=== PATIENT | female | born 1980 | race Caucasian/White ===

== ENCOUNTER 2019-05-28 10:14 | Emergency (ER) | payer BC, SELFPAY ==
[2019-05-28] VITALS (9 sets, daily range): BP systolic 122–143; BP diastolic 81–94; PULSE 72–94; RESP 12–19; TEMP 36.7; O2SAT 98–100
--- NOTE | ~2019-05-28 | XR_ITS ---
EXAMINATION: XR chest 2V DATE: 05/28/2019 11:01 INDICATION: Chest pain. Shortness of breath. TECHNIQUE: Frontal and lateral views of the chest were obtained. COMPARISON: None. FINDINGS: The chest demonstrates clear lungs without pneumonia, pleural effusion, or pneumothorax. Th e heart size is normal. Surgical clips in the right upper quadrant are likely from cholecystectomy. IMPRESSION: 1. No acute cardiopulmonary disease. Reviewed, dictated and finalized at location A. [facility]
--- NOTE | 2019-05-28 10:39 | ECG_ITS ---
Measurements Intervals [place] Rate: 84 P: 54 AR: 125 QRS: 4 QRSD: 97 T: 18 QT: 345 QTc: 410 Interpretive Statements SINUS RHYTHM VOLTAGE CRITERIA FOR LVH BORDERLINE ST-T WAVE ABNORMALITY- ANTEROLAT/INF LEADS BORDERLINE ECG Electronically Signed On 05-28-2019 10:48:24 STATE ATTORNEY by Nasir Taylor D.O.
--- NOTE | 2019-05-28 10:41 | ED.CHESTPAIN ---
HPI - Chest Pain General Chief Complaint: Headache Stated Complaint: high bp/cp/joseph Time Seen by Provider: 05/28/19 10:33 Source: patient Mode of arrival: ambulatory Limitations: no limitations History of Present Illness HPI narrative: Patient is a 38-year-old female who presents with chest discomfort noted as a pressure over the left chest that radiates to the left arm began today also noting headache with concern for elevated blood pressure notes she went Sunday to urgent care for blood pressure was also having chest discomfort at that time was evaluated and sent home patient notes concern for possible elevated blood pressure denies history of hypertension. Patient does not take anything other than naproxen for her headache and on arrival is in the room in no distress presents per private vehicle Related Data Home Medications Medication Instructions Recorded Confirmed 05/28/19 Allergies Allergy/AdvReac Type Severity Reaction Status Date / Time latex Allergy Mild RASH Verified 05/28/19 10:53 codeine AdvReac Unknown Nausea and Verified 05/28/19 10:53 Vomiting Review of Systems Review of Systems: Narrative: CONSTITUTIONAL: Denies fever, chills, or sweats. EYES: Denies redness, or discharge. ENT: Denies rhinorrhea, congestion, sore throat, or otalgia. CARDIOVASCULAR: Denies palpitations, or edema. RESPIRATORY: Denies cough or dyspnea. GASTROINTESTINAL: Denies abdominal pain, vomiting, or diarrhea. GENITOURINARY: Denies dysuria or hematuria. SKIN: Denies rash or itching. MUSCULOSKELETAL: Denies back pain, joint pain, or myalgia. NEUROLOGIC: Denies numbness, dizziness, or weakness. PSYCHIATRIC: Denies anxiety . PMFSH Family History Family History Sibling Diabetes mellitus Hypertension Grandparent Diabetes mellitus Father Hypertension Mother Family history of malignant neoplasm of breast in first degree relative Social History Social History Smoking status: Former smoker Smoking end date: 03/26/10 Alcohol intake: current Gender identity (if verbalized by the patient): Female Exam Narrative: Exam Narrative: GENERAL: Well-appearing, well-nourished, and in no acute distress. HEAD: Normocephalic, atraumatic. EYES: PERRLA and EOMI. ENT: Nares clear, no rhinorrhea or epistaxis. Mucous membranes moist. Oropharynx without tonsillar hypertrophy exudate or other lesions. NECK: Supple. No adenopathy or masses. CHEST: Clear to auscultation. No respiratory distress. No wheezes rales or rhonchi HEART: Regular rate and rhythm. No murmur heard. Normal peripheral pulses. ABDOMEN: Soft, nontender, nondistended EXTREMITIES: Normal range of motion. No edema. SKIN: Warm, dry, no rash. NEURO: No focal deficits. Alert and oriented x3. Cranial nerves II through XII grossly intact PSYCH: Normal mood and affect. Course Course Emergency Course: Patient in the room in no distress aware of case findings treatment plan and diagnosis agreeing to follow-up with primary care and cardiology provided with reasons to return Vital Signs Vital signs: Vital Signs Pulse Rate 94 05/28/19 10:21 Respiratory Rate 19 05/28/19 10:21 Blood Pressure 136/87 05/28/19 10:21 Pulse Oximetry 100 05/28/19 10:21 Temperature 98.0 F 05/28/19 10:41 Pulse Rate 72 05/28/19 13:06 Respiratory Rate 13 05/28/19 13:06 Blood Pressure 132/81 05/28/19 12:16 Pulse Oximetry 99 05/28/19 13:06 MDM - Chest Pain MDM Narrative Medical decision making narrative: Patients EKGs and labs are without significant high risk changes. Cardiac risk factors were review. Patient is felt likely to be low risk for ACS and reasonable for further risk stratification testing as an outpatient. Pain was not sadden or maximal in onset without tearing or ripping. quality. No other signs or symptoms to suggest aortic di
[2019-05-28 10:59] LABS: Basophils Absolute Auto 0.1 K/mm3 (0.0-0.1); Basophils Percent Auto 1.1 % (0.2-1.2); Eosinophils Percent Auto 0.4 % (0-4.4); Hematocrit 40.4 % (37.0-47.0); Hemoglobin 12.7 g/dL (12.0-15.0); Immature Granulocyte Absolute 0.02 K/mm3 (0.00-0.031); Immature Granulocyte Percent A 0.4 % (0-0.5); Lymphocytes Absolute Auto 1.31 K/mm3 (0.9-3.2); Lymphocytes Percent Auto 23.5 % (18.3-44.2); Mean Corpuscular HGB Conc 31.4 g/dl (32-36); Mean Corpuscular Hemoglobin 29.2 pg (26-34); Mean Corpuscular Volume 92.9 fl (80-100); Mean Platelet Volume 12.7 fl (7.4-10.4); Monocytes Absolute Auto 0.3 K/mm3 (0.1-0.6); Monocytes Percent Auto 5.7 % (2.6-8.5); Neutrophils Absolute Auto 3.9 K/mm3 (1.3-6.7); Neutrophils Percent Auto 68.9 % (45.5-73.1); Platelet Count Result 205 k/mm3 (150-375); Red Blood Count 4.35 M/mm3 (4.2-5.4); Red Cell Distribution Width 13.3 % (11.5-14.5); White Blood Count 5.6 K/mm3 (4.5-10.0)
[2019-05-28 11:05] LABS: INR 0.9; Prothrombin Time 12.2 Seconds (11.1-14.7)
[2019-05-28 11:06] LABS: Partial Thromboplastin Time 33.7 SECONDS (22.3-36.8)
[2019-05-28 11:07] LABS: Blood Urea Nitrogen 6 mg/dL (7-17); Calcium 9.2 mg/dL (8.4-10.2); Carbon Dioxide 29 mmol/L (22-30); Chloride 101 mmol/L (98-107); Estimated CRCL calculation 117 ml/min; Estimated Glomerular Filt Rate > 60; Glucose 108 mg/dL (65-105); Potassium 3.6 mmol/L (3.4-5.0); Sodium 136 mmol/L (137-145)
[2019-05-28 11:19] LABS: Troponin I < 0.012 ng/mL (0.000-0.034)
[2019-05-28] MEDS: ASPIRIN 81 MG CHEWABLE TABLET 324 MG PO (11:28)
--- NOTE | 2019-05-28 11:30 | PC.NURSE ---
Pt denies chest pain, states it's a heaviness and it's getting better. My head is getting worse .
[2019-05-28 11:43] LABS: Add Urine Microscopic? NO; Appearance Urine Clear (Clear); Bilirubin Urine Negative (Negative); Blood Urine Negative (Negative); Color Urine Colorless (Yellow); Glucose Urine UA Negative (Negative); Ketones Urine Negative (Negative); Leukocyte Esterase Ur Negative LEU/UL (Negative); Nitrate Urine Negative (Negative); Protein Urine Negative (Negative); Urobilinogen Urine Negative mg/dL (<2.0)
[2019-05-28 11:45] LABS: Specific Grav Ur 1.004 (1.001-1.035)
--- NOTE | 2019-05-28 13:10 | PC.NURSE ---
Pt ambulatory to bathroom. States is feeling tired, but that headache contines to feel better. Denies chest pain.
[2019-05-28 14:14] LABS: Troponin I < 0.012 ng/mL (0.000-0.034)
== END 2019-05-28 14:46 | disposition home or self-care (01) ==
PROVIDERS: Emergency Medicine Emergency Medical Services; Emergency Provider Emergency Medicine
DX: R07.89 Other chest pain (principal); R51 Headache; Z87.891 Personal history of nicotine dependence; R94.31 Abnormal electrocardiogram [ECG] [EKG]
CPT/HCPCS: 36415; 71046; 80048; 81003; 84484; 85025; 85610; 85730; 93005; 96365; 99284; A9270; J0131

== ENCOUNTER 2019-07-17 14:52 | Outpatient (RCR) | payer BC, SELFPAY ==
[2019-07-17 04:09] LABS: Progesterone 23.5 ng/mL (***)
== END 2019-10-13 23:59 | disposition home or self-care (01) ==
LOC: ANHLAB 14:52
PROVIDERS: Visit Provider Obstetrics & Gynecology
DX: O20.0 Threatened abortion (principal); Z3A.00 Weeks of gestation of pregnancy not specified
CPT/HCPCS: 36415; 84144; 84702

== ENCOUNTER 2019-08-05 10:47 | Outpatient (CLI) | payer BC, SELFPAY ==
--- NOTE | ~2019-08-05 | US_ITS ---
EXAMINATION: US OB <=14 wk fetus w TV DATE: 08/05/2019 11:35 INDICATION: viability assessment during first trimester TECHNIQUE: Real-time pelvic transabdominal and transvaginal ultrasound was performed. COMPARISON: None. FINDINGS: The uterus measures 11.1 x 5.3 x 6.1 cm. There is an intrauterine gestational sac. A 2.4 x 1.6 x 0.2 cm subchorionic hematoma is seen adjacent to the gestational sac. A yolk sac is identified . heart motion is identified measuring 176 beats per minute (bpm) by M-mode Doppler. The crown rump length measures 2.1 cm , which correlates with an estimated gestational age of 8 weeks and 5 day(s) (+/-) 5 day(s). The right ovary measures 2.7 x 1.6 x 2.5 cm. The left ovary measures 3.4 x 2.5 x 3.1 cm. There is nor mal vascular flow in the ovaries. There is no free fluid in the pelvis. IMPRESSION: 1. Live intrauterine with an estimated gestational age of 8 weeks and 5 day(s) (+/-) five d ay(s) and an estimated delivery date of 03/11/2020. 2. Small subchorionic hematoma. Reviewed, dictated and finalized at location A. IMPRESSION: 1. Live intrauterine with an estimated gestational age of 8 weeks and 5 day(s) (+/-) five day(s) and an estimated delivery date of 03/11/2020. 2. Small subchorionic hematoma.
== END 2019-08-05 10:48 | disposition home or self-care (01) ==
PROVIDERS: PCP Family Medicine; Visit Provider Obstetrics & Gynecology
DX: Z34.90 Encounter for supervision of normal pregnancy, unspecified, unspecified trimester (principal); O20.0 Threatened abortion; Z3A.08 8 weeks gestation of pregnancy; O36.8911 Maternal care for other specified fetal problems, first trimester, fetus 1
CPT/HCPCS: 76801; 76817

== ENCOUNTER 2019-08-12 10:39 | Outpatient (RCR) | payer BC, SELFPAY ==
[2019-08-11 12:06] LABS: Basophils Absolute Auto 0.1 K/mm3 (0.0-0.1); Basophils Percent Auto 0.7 % (0.2-1.2); Eosinophils Absolute Auto 0.1 K/mm3 (0-0.3); Eosinophils Percent Auto 0.9 % (0-4.4); Hematocrit 36.5 % (37.0-47.0); Immature Granulocyte Absolute 0.03 K/mm3 (0.00-0.031); Immature Granulocyte Percent A 0.4 % (0-0.5); Lymphocytes Absolute Auto 1.21 K/mm3 (0.9-3.2); Mean Corpuscular HGB Conc 32.9 g/dl (32-36); Mean Corpuscular Hemoglobin 30.2 pg (26-34); Mean Corpuscular Volume 91.9 fl (80-100); Mean Platelet Volume 12.5 fl (7.4-10.4); Monocytes Absolute Auto 0.5 K/mm3 (0.1-0.6); Monocytes Percent Auto 5.7 % (2.6-8.5); Neutrophils Absolute Auto 6.2 K/mm3 (1.3-6.7); Neutrophils Percent Auto 77.3 % (45.5-73.1); Platelet Count Result 191 k/mm3 (150-375); Red Blood Count 3.97 M/mm3 (4.2-5.4); Red Cell Distribution Width 13.9 % (11.5-14.5); White Blood Count 8.1 K/mm3 (4.5-10.0)
[2019-08-11 12:53] LABS: Vitamin D 25 Hydroxy 29.7 ng/mL
[2019-08-11 12:55] LABS: Thyroid Stimulating Hormone 0.381 uIU/mL (0.465-4.680)
[2019-08-11 13:01] LABS: Hepatitis B Surface Antigen Negative (Negative); Rubella IgG Antibody 24.1 IU/ML
[2019-08-11 13:13] LABS: HIV 1/2 Ab P24 Ag Result Negative (Negative); Hepatitis C Virus Antibody Negative (Negative)
[2019-08-12 10:59] LABS: Add Urine Microscopic? NO; Appearance Urine Clear (Clear); Bilirubin Urine Negative (Negative); Blood Urine Negative (Negative); Color Urine Yellow (Yellow); Glucose Urine UA Negative (Negative); Ketones Urine Negative (Negative); Leukocyte Esterase Ur Negative LEU/UL (NEGATIVE); Nitrate Urine Negative (Negative); Protein Urine Negative (Negative); Specific Grav Ur 1.014 (1.001-1.035); Urobilinogen Urine Negative mg/dL (<2.0)
[2019-08-12 11:42] LABS: Rapid Plasma Reagin Non-Reactive (NonReactive)
[2019-08-12 13:02] LABS: Creatinine Urine 65.1 mg/dL
[2019-08-12 13:34] LABS: Creatinine 24 Hour Urine 1.1 gm/24 (0.8-1.8); Total Volume 24 Hour Urine 1800 ml
[2019-08-16 05:53] LABS: Hematocrit 37.6 % (35.0-45.0); Hemoglobin 12.2 g/dL (11.7-15.5); MCH 30.4 pg (27.0-33.0); MCV 93.8 FL (80.0-100.0); RDW 15.1 % (11.0-15.0); Red Blood Cell Count 4.01 Mill/uL (3.80-5.10)
== END 2019-11-09 23:59 | disposition home or self-care (01) ==
LOC: ANHLAB 10:39
PROVIDERS: PCP Family Medicine; Visit Provider Obstetrics & Gynecology
DX: N91.2 Amenorrhea, unspecified (principal); O20.0 Threatened abortion; Z3A.00 Weeks of gestation of pregnancy not specified; Z11.4 Encounter for screening for human immunodeficiency virus [HIV]
CPT/HCPCS: 36415; 81003; 81050; 81220; 81243; 82306; 82570; 83021; 84443; 84702; 85025; 86592; 86703; 86762; 86787; 86803; 86900; 86901; 87086; 87340; G0432

== ENCOUNTER 2019-09-08 11:21 | Outpatient (CLI) | payer BC, SELFPAY ==
--- NOTE | ~2019-09-08 | US_ITS ---
EXAMINATION: US OB <=14 wk fetus w TV DATE: 09/08/2019 12:06 INDICATION: Supervision of other high-risk pregnancies, first trimester. TECHNIQUE: Real-time transabdominal and transvaginal pelvic ultrasound was performed. COMPARISON: Ultrasound 08/05/2019 FINDINGS: TRANSABDOMINAL ULTRASOUND: The uterus measures 10.3 x 6.9 x 9.7 cm. TRANSVAGINAL ULTRASOUND: There is an intrauterine gestational sac. The crown rump length measur es 3.7 cm, which correlates with an estimated gestational age of 10 weeks and 4 day(s) (+/-) 1 week(s ) and 0 day(s). heart motion is not identified by M-mode Doppler and color Doppler. The right o vary is not visualized. The left ovary measures 3.2 x 2.4 x 1.9 cm. There is no free fluid in the pel vis. IMPRESSION: 1. demise. Reviewed, dictated and finalized at location A. IMPRESSION: 1. demise.
== END 2019-09-08 11:22 | disposition home or self-care (01) ==
PROVIDERS: PCP Family Medicine; Visit Provider Obstetrics & Gynecology
DX: O02.1 Missed abortion (principal); Z3A.00 Weeks of gestation of pregnancy not specified
CPT/HCPCS: 76801; 76817

== ENCOUNTER 2019-09-22 11:03 | Outpatient (CLI) | payer BC, SELFPAY ==
--- NOTE | ~2019-09-22 | US_ITS ---
EXAMINATION: US pelvic complete w TV EXAM DATE: 09/22/2019 11:40 INDICATION: Vaginal spotting, missed . TECHNIQUE: Pelvic transabdominal and transvaginal sonogram was performed. There are multiple graysca le and Doppler images available for interpretation. Comparison is made to prior examination from 09/07. FINDINGS: Uterus measures 9.4 x 5.5 x 5.5 cmwith small fluid, some debris within the endometrium reg ion measuring about 1.3 x 1.0 cm with some surrounding hypervascularity of the adjacent myometrium. R etained products of conception. Endometrial stripe measures 12 mm, within normal limits. There is no free pelvic fluid. Right adnexa: The right ovary is normal in size and morphology. Left adnexa: The left ovary is normal in size and morphology. IMPRESSION: 1. Small amount of retained products of conception. Reviewed, dictated and finalized at location B.
== END 2019-09-22 11:04 | disposition home or self-care (01) ==
PROVIDERS: PCP Family Medicine; Visit Provider Obstetrics & Gynecology
DX: O02.1 Missed abortion (principal); Z3A.00 Weeks of gestation of pregnancy not specified
CPT/HCPCS: 76830; 76856

== ENCOUNTER 2019-10-14 15:24 | Outpatient (CLI) | payer BC, SELFPAY ==
[2019-10-14 16:39] LABS: Beta HCG Quantitative 32.69 mIU/ML
== END 2019-10-14 15:25 | disposition home or self-care (01) ==
PROVIDERS: PCP Family Medicine; Visit Provider Obstetrics & Gynecology
DX: O03.9 Complete or unspecified spontaneous abortion without complication (principal); Z3A.00 Weeks of gestation of pregnancy not specified
CPT/HCPCS: 36415; 84702

== ENCOUNTER 2019-10-30 14:35 | Outpatient (CLI) | payer BC, SELFPAY ==
[2019-10-30 15:17] LABS: Beta HCG Quantitative 12.32 mIU/ML
== END 2019-10-30 14:36 | disposition home or self-care (01) ==
LOC: ANHLAB 14:38
PROVIDERS: PCP Family Medicine; Visit Provider Obstetrics & Gynecology
DX: O02.1 Missed abortion (principal); Z3A.00 Weeks of gestation of pregnancy not specified
CPT/HCPCS: 36415; 84702

== ENCOUNTER 2019-11-26 14:59 | Outpatient (CLI) | payer BC, SELFPAY ==
[2019-11-26 16:10] LABS: Beta HCG Quantitative < 2.39 mIU/ML
== END 2019-11-26 15:00 | disposition home or self-care (01) ==
PROVIDERS: PCP Family Medicine; Visit Provider Obstetrics & Gynecology
DX: O02.1 Missed abortion (principal); Z3A.00 Weeks of gestation of pregnancy not specified
CPT/HCPCS: 36415; 84702

== ENCOUNTER 2020-06-30 12:20 | Outpatient (CLI) | payer OTHER, SELFPAY ==
--- NOTE | ~2020-06-30 | US_ITS ---
EXAMINATION: US OB <= 14 weeks fetus DATE: 06/30/2020 13:03 INDICATION: Missed . TECHNIQUE: Real-time transabdominal pelvic ultrasound was performed. COMPARISON: None. FINDINGS: The uterus measures 10.4 x 5.7 x 6.9 cm. There is an intrauterine gestational sac. The crown r ump length measures 1.1 cm, which correlates with an estimated gestational age of 7 weeks and 1 day(s ) (+/-) 5 day(s). heart motion is identified measuring 171 beats per minute (bpm) by M-mode Dop pler. There is a small subchorionic hematoma. The ovaries are not visualized. There is no free fluid in the pelvis. IMPRESSION: 1. Single living intrauterine gestation with estimated date of delivery of 02/15/2021. 2. Small subchorionic hematoma. Reviewed, dictated and finalized at location A. IMPRESSION: 1. Single living intrauterine gestation with estimated date of delivery of . 2. Small subchorionic hematoma.
[2020-07-04 09:19] LABS: Progesterone 23.5 ng/mL (***)
== END 2020-06-30 12:21 | disposition home or self-care (01) ==
PROVIDERS: PCP Family Medicine; Visit Provider Obstetrics & Gynecology
DX: O09.891 Supervision of other high risk pregnancies, first trimester (principal); O46.91 Antepartum hemorrhage, unspecified, first trimester; Z3A.01 Less than 8 weeks gestation of pregnancy
CPT/HCPCS: 36415; 76801; 84144; 84702

== ENCOUNTER 2020-07-03 08:56 | Outpatient (CLI) | payer OTHER, SELFPAY | END 2020-07-03 08:57 | disposition home or self-care (01) | PROVIDERS: PCP Family Medicine; Visit Provider Obstetrics & Gynecology | DX: O09.891 Supervision of other high risk pregnancies, first trimester (principal); Z3A.00 Weeks of gestation of pregnancy not specified | CPT/HCPCS: 36415; 84702 ==

== ENCOUNTER 2020-07-14 12:34 | Outpatient (CLI) | payer OTHER, SELFPAY ==
[2020-07-14 13:34] LABS: Add Urine Microscopic? YES; Appearance Urine Cloudy (Clear); Bilirubin Urine Negative (Negative); Blood Urine Negative (Negative); Color Urine Yellow (Yellow); Glucose Urine UA Negative (Negative); Ketones Urine 1+ mg/dL (Negative); Leukocyte Esterase Ur Negative LEU/UL (NEGATIVE); Mucus Urine Heavy /lpf; Nitrate Urine Negative (Negative); Protein Urine 1+ mg/dL (Negative); Specific Grav Ur 1.024 (1.001-1.035); Squamous Epithelial Cell Urine Few /hpf (Few); Urobilinogen Urine Negative mg/dL (<2.0); WBC Urine 0-3 /hpf (0-3)
[2020-07-14 13:39] LABS: Hemoglobin A1C 5.1 % (<5.7)
[2020-07-14 14:08] LABS: Thyroid Stimulating Hormone 0.223 uIU/mL (0.465-4.680)
[2020-07-14 14:17] LABS: HIV 1/2 Ab P24 Ag Result Negative (Negative)
[2020-07-14 14:47] LABS: Vitamin D 25 Hydroxy 24.7 ng/mL
[2020-07-14 15:04] LABS: Hepatitis B Surface Antigen Negative (Negative); Rubella IgG Antibody 14.6 IU/ML
[2020-07-14 15:18] LABS: Hepatitis C Virus Antibody Negative (Negative)
[2020-07-15 13:04] LABS: Rapid Plasma Reagin Non-Reactive (NonReactive)
[2020-07-16 18:07] LABS: Free T4 Free Thyroxine 1.07 ng/mL (0.78-2.19)
== END 2020-07-14 12:35 | disposition home or self-care (01) ==
LOC: ANHNEURO 12:36
PROVIDERS: PCP Family Medicine; Visit Provider Obstetrics & Gynecology
DX: Z34.90 Encounter for supervision of normal pregnancy, unspecified, unspecified trimester (principal); Z3A.00 Weeks of gestation of pregnancy not specified
CPT/HCPCS: 36415; 81001; 82306; 83036; 84436; 84439; 84443; 86592; 86703; 86762; 86787; 86803; 86850; 86900; 86901; 87086; 87340; G0432

== ENCOUNTER 2020-07-19 07:59 | Outpatient (CLI) | payer OTHER, SELFPAY ==
[2020-07-19 08:58] LABS: Estimated Glomerular Filt Rate > 60
[2020-07-19 12:33] LABS: Collection Time Urine 24 HOURS
[2020-07-19 12:38] LABS: Total Volume 24 Hour Urine 2350 ml
[2020-07-19 12:39] LABS: Patient Weight 175 Lbs
[2020-07-19 12:52] LABS: Creatinine Clearance Urine 166.7 ml/min (75-125); Total Protein Urine 24 Hr 258 mg/24hr (28-141); Total Protein Urine Random 11 mg/dL
== END 2020-07-19 08:00 | disposition home or self-care (01) ==
PROVIDERS: PCP Family Medicine; Visit Provider Obstetrics & Gynecology
DX: I10 Essential (primary) hypertension (principal)
CPT/HCPCS: 36415; 81050; 82565; 82575; 84156

== ENCOUNTER 2020-11-06 16:25 | Observation (INO) | payer MEDICAID, SELFPAY ==
[2020-11-06 17:18] VITALS: BMI 35.6
--- NOTE | 2020-11-06 17:19 | OBADM ---
This patient, Marta Solitario, admitted to the OB room OB Post 117 for observation. Patient/family oriented to hospital policies and general routines including ID bracelet, bed and alarms, visiting hours, pain management, procedures, bathroom and other care routines, personal items, smoking policy, room service/diet, and visiting hours. Patient/Family are encouraged to report perceived risks to care and to ask questions if they do not understand what they are told or what they should do.
[2020-11-06 17:31] VITALS: BP 106/56; PULSE 67
--- NOTE | 2020-12-03 10:53 | PM.OBTRLD ---
OB - Triage/Final Diagnosis Visit Information Comments/Additional reasons for admission: I have assessed the risk for this patient, Marta Omer Altaf, and determined that she would benefit from observation care. Final Diagnosis (1) Status post fall: Code(s): Z91.81 - History of falling Status: Acute
== END 2020-11-06 17:50 | disposition home or self-care (01) ==
PROVIDERS: Admitting Provider Obstetrics & Gynecology; PCP Family Medicine; Visit Provider Obstetrics & Gynecology
DX: Z04.3 Encounter for examination and observation following other accident (principal); O26.899 Other specified pregnancy related conditions, unspecified trimester; W19.XXXA Unspecified fall, initial encounter; Z3A.00 Weeks of gestation of pregnancy not specified
CPT/HCPCS: G0378; G0379

== ENCOUNTER 2020-11-16 09:00 | Outpatient (CLI) | payer MEDICAID, SELFPAY ==
[2020-11-16 11:09] LABS: Basophils Percent Auto 0.6 % (0.2-1.2); Eosinophils Percent Auto 0.3 % (0-4.4); Hematocrit 33.8 % (37.0-47.0); Hemoglobin 10.7 g/dL (12.0-15.0); Immature Granulocyte Absolute 0.04 K/mm3 (0.00-0.031); Immature Granulocyte Percent A 0.6 % (0-0.5); Lymphocytes Absolute Auto 0.97 K/mm3 (0.9-3.2); Lymphocytes Percent Auto 13.7 % (18.3-44.2); Mean Corpuscular HGB Conc 31.7 g/dl (32-36); Mean Corpuscular Hemoglobin 30.8 pg (26-34); Mean Corpuscular Volume 97.4 fl (80-100); Mean Platelet Volume 11.9 fl (7.4-10.4); Monocytes Absolute Auto 0.3 K/mm3 (0.1-0.6); Monocytes Percent Auto 4.7 % (2.6-8.5); Neutrophils Absolute Auto 5.7 K/mm3 (1.3-6.7); Neutrophils Percent Auto 80.1 % (45.5-73.1); Platelet Count Result 189 k/mm3 (150-375); Red Blood Count 3.47 M/mm3 (4.2-5.4); Red Cell Distribution Width 14.6 % (11.5-14.5); White Blood Count 7.1 K/mm3 (4.5-10.0)
[2020-11-16 11:23] LABS: Glucose 1 Hour PP 50gm Dose 179 mg/dL
[2020-11-16 11:38] LABS: Free T4 Free Thyroxine 0.67 ng/mL (0.78-2.19)
[2020-11-16 11:51] LABS: Thyroid Stimulating Hormone 0.237 uIU/mL (0.465-4.680)
== END 2020-11-16 09:01 | disposition home or self-care (01) ==
LOC: ANHLAB 09:02
PROVIDERS: PCP Family Medicine; Visit Provider Obstetrics & Gynecology
DX: Z34.90 Encounter for supervision of normal pregnancy, unspecified, unspecified trimester (principal); Z3A.00 Weeks of gestation of pregnancy not specified
CPT/HCPCS: 36415; 82947; 84439; 84443; 85025

== ENCOUNTER 2020-12-07 12:58 | Outpatient (CLI) | payer MEDICAID, SELFPAY ==
[2020-12-07 14:31] LABS: Thyroid Stimulating Hormone 0.397 uIU/mL (0.465-4.680)
== END 2020-12-07 12:59 | disposition home or self-care (01) ==
PROVIDERS: PCP Family Medicine; Visit Provider Obstetrics & Gynecology
DX: Z34.93 Encounter for supervision of normal pregnancy, unspecified, third trimester (principal); Z3A.28 28 weeks gestation of pregnancy
CPT/HCPCS: 36415; 84436; 84443

== ENCOUNTER 2021-01-18 13:14 | Outpatient (CLI) | payer OTHER, SELFPAY ==
[2021-01-18 13:39] LABS: Basophils Absolute Auto 0.1 K/mm3 (0.0-0.1); Basophils Percent Auto 0.5 % (0.2-1.2); Eosinophils Absolute Auto 0.1 K/mm3 (0-0.3); Eosinophils Percent Auto 0.7 % (0-4.4); Hematocrit 33.2 % (37.0-47.0); Hemoglobin 10.8 g/dL (12.0-15.0); Immature Granulocyte Absolute 0.04 K/mm3 (0.00-0.031); Immature Granulocyte Percent A 0.4 % (0-0.5); Lymphocytes Absolute Auto 1.67 K/mm3 (0.9-3.2); Lymphocytes Percent Auto 17.6 % (18.3-44.2); Mean Corpuscular HGB Conc 32.5 g/dl (32-36); Mean Corpuscular Hemoglobin 31.7 pg (26-34); Mean Corpuscular Volume 97.4 fl (80-100); Mean Platelet Volume 11.7 fl (7.4-10.4); Monocytes Absolute Auto 0.6 K/mm3 (0.1-0.6); Monocytes Percent Auto 6.5 % (2.6-8.5); Neutrophils Percent Auto 74.3 % (45.5-73.1); Platelet Count Result 192 k/mm3 (150-375); Red Blood Count 3.41 M/mm3 (4.2-5.4); Red Cell Distribution Width 14.1 % (11.5-14.5); White Blood Count 9.5 K/mm3 (4.5-10.0)
[2021-01-18 14:29] LABS: HIV 1/2 Ab P24 Ag Result Negative (Negative)
[2021-01-19 08:31] LABS: Rapid Plasma Reagin Non-Reactive (NonReactive)
== END 2021-01-18 13:15 | disposition home or self-care (01) ==
LOC: ANHLAB 13:15
PROVIDERS: PCP Family Medicine; Visit Provider Obstetrics & Gynecology
DX: Z34.93 Encounter for supervision of normal pregnancy, unspecified, third trimester (principal); Z3A.34 34 weeks gestation of pregnancy
CPT/HCPCS: 36415; 85025; 86592; 86703; G0432

== ENCOUNTER 2021-01-29 13:07 | Observation (INO) | payer OTHER, SELFPAY ==
[2021-01-29] VITALS (8 sets, daily range): BP systolic 116–129; BP diastolic 73–77; PULSE 74–88; TEMP 37.1; BMI 34.8
--- NOTE | 2021-01-29 13:46 | OBADM ---
This patient, Marta Solitario, admitted to the OB room Labor/Delivery/Recovery 105 for observation. Patient/family oriented to hospital policies and general routines including ID bracelet, bed and alarms, visiting hours, pain management, procedures, bathroom and other care routines, personal items, smoking policy, room service/diet, and visiting hours. Patient/Family are encouraged to report perceived risks to care and to ask questions if they do not understand what they are told or what they should do.
[2021-01-29 14:06] LABS: Add Urine Microscopic? NO; Appearance Urine Clear (Clear); Bilirubin Urine Negative (Negative); Blood Urine Negative (Negative); Color Urine Straw (Yellow); Glucose Urine UA Negative (Negative); Ketones Urine Negative (Negative); Leukocyte Esterase Ur Negative LEU/UL (Negative); Nitrate Urine Negative (Negative); Protein Urine Negative (Negative); Urobilinogen Urine Negative mg/dL (<2.0)
[2021-01-29 14:11] LABS: Specific Grav Ur 1.003 (1.001-1.035)
--- NOTE | 2021-02-04 08:31 | PM.OBTRLD ---
OB - Triage/Final Diagnosis Visit Information Comments/Additional reasons for admission: I have assessed the risk for this patient, Marta Omer Altaf, and determined that she would benefit from observation care. Evaluation Laboratory results: Laboratory Tests 01/29/21 13:53 Urine Color Straw Urine Appearance Clear Urine pH 7.0 Ur Specific [place] 1.003 Urine Protein Negative Urine Glucose (UA) Negative Urine Ketones Negative Ur Blood (Man) Negative Urine Nitrate Negative Urine Bilirubin Negative Urine Urobilinogen Negative Leukocyte Esterase Rfl Negative Final Diagnosis (1) False labor: Code(s): O47.9 - False labor, unspecified Status: Acute
== END 2021-01-29 16:22 | disposition home or self-care (01) ==
PROVIDERS: Admitting Provider Obstetrics & Gynecology; PCP Family Medicine; Visit Provider Obstetrics & Gynecology
DX: O47.1 False labor at or after 37 completed weeks of gestation (principal); Z3A.37 37 weeks gestation of pregnancy
CPT/HCPCS: 81003; G0378; G0379

== ENCOUNTER 2021-02-01 07:06 | Inpatient (IN) | payer OTHER, SELFPAY ==
[2021-02-01] VITALS (57 sets, daily range): BP systolic 105–155; BP diastolic 57–98; PULSE 63–89; RESP 18–20; TEMP 36.1–37.4; BMI 34.1
--- NOTE | 2021-02-01 07:28 | LDADM ---
This patient, Marta Solitario, was admitted to Labor/Delivery/Recovery 103 on 02/01/21 at 07:06. Plans for labor, pain management and were discussed with patient. Patient/family oriented to hospital policies and general routines including ID bracelet, bed and alarms, visiting hours, pain management, procedures, bathroom and other care routines, personal items, smoking policy, room service/diet and guest tray routines, security routines, and visiting hours. Patient/Family are encouraged to report perceived risks to care and to ask questions if they do not understand what they are told or what they should do. See OBIX for further documentation.
[2021-02-01 07:42] LABS: Basophils Absolute Auto 0.1 K/mm3 (0.0-0.1); Basophils Percent Auto 0.6 % (0.2-1.2); Eosinophils Absolute Auto 0.1 K/mm3 (0-0.3); Eosinophils Percent Auto 0.8 % (0-4.4); Hemoglobin 11.6 g/dL (12.0-15.0); Immature Granulocyte Absolute 0.02 K/mm3 (0.00-0.031); Immature Granulocyte Percent A 0.2 % (0-0.5); Lymphocytes Absolute Auto 1.48 K/mm3 (0.9-3.2); Lymphocytes Percent Auto 16.5 % (18.3-44.2); Mean Corpuscular HGB Conc 32.2 g/dl (32-36); Mean Corpuscular Hemoglobin 31.4 pg (26-34); Mean Corpuscular Volume 97.6 fl (80-100); Mean Platelet Volume 11.9 fl (7.4-10.4); Monocytes Absolute Auto 0.6 K/mm3 (0.1-0.6); Monocytes Percent Auto 6.7 % (2.6-8.5); Neutrophils Absolute Auto 6.7 K/mm3 (1.3-6.7); Neutrophils Percent Auto 75.2 % (45.5-73.1); Platelet Count Result 187 k/mm3 (150-375); Red Blood Count 3.69 M/mm3 (4.2-5.4); Red Cell Distribution Width 14.2 % (11.5-14.5)
[2021-02-01] MEDS: LACTATED RINGERS 1,000 ML 125 ML IV CONT (07:44)
[2021-02-01] MEDS: OXYTOCIN 30 UNITS/NS 500 ML 30 UNITS/500 ML BAG IV CONT (07:45)
[2021-02-01] MEDS: AMPICILLIN 2 GM/NS 100 ML 2 GM/100 ML BAG IVPB (07:45)
[2021-02-01 07:58] LABS: Alanine Aminotransferase 32 U/L (4-35); Albumin Level 3.8 g/dL (3.5-5.1); Alkaline Phosphatase 134 U/L (38-126); Anion Gap 7 mmol/L (8-16); Aspartate Amino Transferase 29 U/L (14-36); Bilirubin,Total 0.3 mg/dL (0.2-1.3); Blood Urea Nitrogen 7 mg/dL (7-17); Calcium 9.2 mg/dL (8.4-10.2); Carbon Dioxide 22 mmol/L (22-30); Chloride 105 mmol/L (98-107); Estimated CRCL calculation 138 ml/min; Estimated Glomerular Filt Rate > 60; Glucose 140 mg/dL (65-110); Potassium 3.7 mmol/L (3.4-5.0); Sodium 134 mmol/L (137-145)
[2021-02-01 08:28] LABS: Platelet Estimate Adequate (Adequate)
[2021-02-01 08:34] LABS: Uric Acid 4.5 mg/dL (2.5-7.5)
[2021-02-01 08:39] LABS: HIV 1/2 Ab P24 Ag Result Negative (Negative)
[2021-02-01 09:26] LABS: Rapid Plasma Reagin Non-Reactive (NonReactive)
[2021-02-01 10:36] LABS: Glucose Point of Care 93 mg/dl (65-105)
[2021-02-01 10:36] LABS: Glucose Point of Care 63 mg/dl (65-105)
[2021-02-01] MEDS: AMPICILLIN 1 GM/NS 50 ML 1 GM/50 ML BAG IVPB ×2 (11:47→15:38)
[2021-02-01 12:35] LABS: Glucose Point of Care 65 mg/dl (65-105)
[2021-02-01 13:53] LABS: Glucose Point of Care 76 mg/dl (65-105)
[2021-02-01 15:38] LABS: Glucose Point of Care 65 mg/dl (65-105)
[2021-02-01 16:16] LABS: Glucose Point of Care 84 mg/dl (65-105)
[2021-02-01] MEDS: DEXTROSE 5%/LACTATED RINGERS 1,000 ML 125 ML IV CONT (16:39)
[2021-02-01] MEDS: FAMOTIDINE 20 MG/2 ML VIAL IV PUSH (18:31)
[2021-02-01] MEDS: OXYTOCIN 30 UNITS/NS 500 ML 30 UNITS/500 ML BAG 125 UNITS IV CONT (19:22)
[2021-02-01] MEDS: IBUPROFEN 600 MG TABLET PO (21:02)
--- NOTE | 2021-02-01 21:29 | OBPPTRN ---
Patient transferred to post room #285 via wheelchair. Support person present. Oriented to unit, room, information board, rooming in, admission packet and security measures. Patient verbalizes understanding.
[2021-02-01] MEDS: LABETALOL HCL 50 MG TABLET 150 MG PO (22:00)
[2021-02-02] VITALS: BP 108/62; PULSE 64; RESP 18; TEMP 36.8
[2021-02-02] MEDS: IBUPROFEN 600 MG TABLET PO ×3 (03:14→19:55)
[2021-02-02 03:25] LABS: Glucose Point of Care 79 mg/dl (65-105)
[2021-02-02 03:35] VITALS: BP 110/67; PULSE 68; RESP 18; TEMP 36.9
--- NOTE | 2021-02-02 03:35 | PC.NURSE ---
Fasting blood sugar 79.
[2021-02-02 05:56] LABS: Hematocrit 31.6 % (37.0-47.0); Hemoglobin 10.2 g/dL (12.0-15.0)
--- NOTE | 2021-02-02 06:39 | PM.IMHP ---
H&P: HPI History of Present Illness Date/Time: 02/01/21 Patient LMP 216 with an EDC 02/15. Consistent with 8 week ultrasound. Admitted at 38 weeks for MIL for chronic hypertension. PNC significant also for gestational diabetes, insulin controlled, AMA. She has had normal NIPT testing, normal surveillance testing. No signs or symptoms of pre-eclampsia. Blood pressures have been normotensive during . Labs reviewed. GBS pos. She has been recommended for induction of labor at 38 weeks due to history of chronic hypertension. Chief Complaint: Medical induction of labor Review of Systems Review of Systems: All systems reviewed & are unremarkable except as noted in HPI and below Constitutional: Constitutional: Reports no additional constitutional complaints and Denies headache(s) Eyes: Eyes: Denies spots in vision ENT: Reports system reviewed and no additional complaints, except as documented and Denies headache(s) Cardiovascular: Cardiovascular: Denies chest pain and Denies dyspnea Respiratory: Respiratory: Denies dyspnea Gastrointestinal: Gastrointestinal: Reports no additional gastrointestinal complaints Genitourinary: Genitourinary: Reports amenorrhea Musculoskeletal: Musculoskeletal: Reports no additional musculoskeletal complaints Integumentary/Breasts: Skin/Breast: Denies breast mass and Denies rash Neurologic: Denies headache(s) Psychiatric: Psychiatric: Reports no additional psychiatric complaints PMFSH Past Medical History Medical History Essential hypertension History of miscarriage x1 Supervision of other high risk pregnancies, first trimester Vaginal delivery x 3 Surgical History Surgical History Hx of cholecystectomy Hx of tonsillectomy Family History Family History Sibling Diabetes mellitus Hypertension Grandparent Diabetes mellitus Father Hypertension Mother Family history of malignant neoplasm of breast in first degree relative Social History Social History Smoking status: Never smoker Alcohol intake: former Alcohol use details: Not since Substance use: never Gender identity (if verbalized by the patient): Female Spiritual care concerns: No Meds Home Medications and Allergies Home Medications Medication Instructions Recorded Confirmed Type labetalol 100 mg tablet 150 mg PO Q12H tablet 06/30/20 02/01/21 History vitamins no.119-iron 1 tablet PO DAILY 06/30/20 02/01/21 History fumarate 29 mg-folic acid 1 mg tablet omeprazole 20 mg capsule,delayed 20 mg PO DAILY 07/14/20 02/01/21 History release blood sugar diagnostic #50 ea 11/23/20 02/01/21 Rx blood-glucose meter #1 ea 11/23/20 02/01/21 Rx lancets 30 gauge and blood glucose #50 ea 11/23/20 02/01/21 Rx strips combo pack NPH Insulin 34 units SUBCUT QPM 01/29/21 02/01/21 History Allergies Allergy/AdvReac Type Severity Reaction Status Date / Time latex Allergy Mild RASH Verified 01/31/21 10:45 codeine AdvReac Intermediate Nausea and Verified 02/01/21 07:21 Vomiting Vital Signs Vital Signs - 24 hr 02/01/21 07:30 02/01/21 07:45 02/01/21 08:00 Temperature 97 F L Pulse Rate 88 86 Respiratory Rate Blood Pressure 121/67 119/76 02/01/21 08:15 02/01/21 08:30 02/01/21 08:45 Temperature Pulse Rate 79 75 79 Respiratory Rate Blood Pressure 117/76 125/82 128/73 02/01/21 09:00 02/01/21 09:15 02/01/21 09:30 Temperature 98.6 F Pulse Rate 82 77 Respiratory Rate Blood Pressure 120/79 114/73 02/01/21 09:31 02/01/21 09:45 02/01/21 10:00 Temperature Pulse Rate 82 79 76 Respiratory Rate Blood Pressure 108/64 114/65 117/64 02/01/21 10:15 02/01/21 10:30 02/01/21 10:45 Temperature
--- NOTE | 2021-02-02 06:50 | PM.OBPRVD ---
OB - Delivery Note Procedure Delivery date: 02/01/21 Procedure: Spontaneous vaginal delivery events: Gestational Diabetes (Chronic hypertension) Induction method: per pitocin protocol Delivery augmentation: rupture of membranes (clear approximately 1300) Delivery monitor: external FHT Route of delivery: Laceration Description: None Specimen: Yes (placenta and cord) Quantitative Blood Loss (ml): 250 Anesthesia type: None Disposition: floor Complications: None Narrative: Patient admitted on 02/01 for medical induction of labor with Pitocin. She had 2 doses of Ampicillin for GBS carrier. At approximately 1300 she had assisted rupture of membranes with clear fluid. Her cervix was 3 cm at that time. She progressed to actively labor. She progressed rapidly from 6 to complete. She delivered a male infant over intact perineum. Nose and mouth suctioned. Delayed cord clamping for 45 seconds until cord apulsatile. was placed on maternal abdomen vigorously crying. Placenta delivered spontaneously intact. EBL 250cc. No lacerations. Patient tolerated procedure well. Baby Date of : 02/01/21 Weeks of gestation at delivery: 38 Infant gender: Male Weight (pounds): 6 Weight (ounces): 9 presentation: vertex position: Right Occiput Anterior Placenta delivery description: Spontaneous
--- NOTE | 2021-02-02 07:00 | PC.NURSE ---
PT introductions made and plan of care discussed per post , pain management, breast feeding, daily care activities. PT received such instructions per one to one discussion , mom baby care guide and demonstrations through out this shift. PT sole recipient of such instructions and no barriers to learning identified at this time. PT verbalized understanding of such care.
[2021-02-02 08:20] VITALS: BP 131/75; PULSE 64; RESP 16; TEMP 36.6; O2SAT 99
[2021-02-02] MEDS: ACETAMINOPHEN 325 MG TABLET 650 MG PO ×2 (10:16→19:55)
[2021-02-02] MEDS: MULTIVIT/MIN/PREN/FOL AC/IRON TABLET 1 TAB PO (10:17)
[2021-02-02] MEDS: DOCUSATE SODIUM 100 MG CAPSULE PO (10:17)
[2021-02-02 10:18] VITALS: PULSE 80
[2021-02-02] MEDS: LABETALOL HCL 50 MG TABLET 150 MG PO ×2 (10:18→21:00)
--- NOTE | 2021-02-02 10:30 | PC.NURSE ---
Consult with pt., mother reports is eagerly feeding with without issue. This is mother?s 4th child to breastfeed. Last child is 5 years old. Requested mother call out next feeding for observation per policy. Reviewed feeding cues, frequencies, duration of feedings, feeding elimination flow sheet, and signs of adequate intake. Demonstrated stimulation techniques to wake infant for feeding. Reviewed signs of a correct latch, effective nursing and suck swallow ratio. Nipple care reviewed of lanolin after feedings and warm compresses as needed. Instructed feeding should be initiated three hours from start of last feeding or if feeding cues are noted before. Mother voiced understanding of information shared.
--- NOTE | 2021-02-02 10:45 | PM.OBPNVD ---
OB - PN: Subj Subjective Date/time seen: 02/02/21 10:45 Patient denies pain. She is breast-feeding and baby is latching on well. Her lochia has decreased. She has ambulated. No problems. She is tolerating regular food. No headaches. Her fasting blood sugar was 76. Patient comments: pain well controlled, tolerating diet and other (Decreasing lochia.) baby status: doing well and nursing well feeding status: exclusively breast feeding OB - PN: Obj Data Labs CBC & Chem 7: 02/02/21 03:04 02/01/21 07:21 Labs: Laboratory Results - last 24 hr 02/01/21 02/01/21 02/01/21 12:33 13:50 15:35 Hgb Hct POC Capillary Glucose 65 76 65 02/01/21 02/02/21 02/02/21 16:14 03:04 03:22 Hgb 10.2 L Hct 31.6 L POC Capillary Glucose 84 79 OB - PN A/P Plan day: 1 Plan: routine care Comments: Patient doing well. Continue routine care. Time Spent With Patient Time: Total time spent is greater than 50% in coordination of care (as documented) at patient's floor/unit and/or counseling patient: Review of Systems Review of Systems: All systems reviewed & are unremarkable except as noted in HPI and below Constitutional: Constitutional: Reports no additional constitutional complaints Cardiovascular: Cardiovascular: Denies dyspnea Respiratory: Respiratory: Denies dyspnea Gastrointestinal: Gastrointestinal: Reports no additional gastrointestinal complaints and Denies abdominal pain Genitourinary: Genitourinary: Reports no additional female genitourinary complaints Exam Const: General: no acute distress, alert and awake Resp: Effort & Inspection: normal respiratory effort GI: Other: Fundus nontender, below umbilicus Psych: Appearance: grossly normal Affect: normal affect Other: Abd: fundus firm below umbilicus, nontender Ext: nontender
[2021-02-02] MEDS: LANOLIN (LANSINOH) 7.5 GM CREAM 1 APPLIC TOPICAL (12:51)
[2021-02-02 20:00] VITALS: BP 120/66; PULSE 71; RESP 16; TEMP 36.6
--- NOTE | 2021-02-03 08:00 | PC.NURSE ---
PT introductions made and plan of care discussed per post , pain management, breast feeding, daily care activities and pending discharge to home. PT received such instructions per one to one discussion , mom baby care guide and demonstrations through out this shift. PT sole recipient of such instructions and no barriers to learning identified at this time. PT verbalized understanding of such care.
[2021-02-03 08:25] VITALS: BP 127/74; PULSE 80; RESP 16; TEMP 36.6; O2SAT 98
[2021-02-03 10:00] VITALS: PULSE 80; RESP 16; O2SAT 98
--- NOTE | 2021-02-03 10:04 | PM.OBDSVD ---
DS: Admitting Diagnosis Discharge Date 02/03/21 Admitting Diagnosis 1. Medical induction of labor 2. Chronic hypertension 3. Insulin requiring gestational diabetes DS: Discharge Diagnosis Discharge Diagnosis (1) Delivery normal: Code(s): O80 - Encounter for full-term uncomplicated delivery Status: Acute OB - DS: Summary Hospital Course Hospital Course: Patient admitted for medical induction of labor. She was started on Pitocin. She received IV antibiotics for GBS prophylaxis. She had assisted rupture of membranes. She progressed to complete and had an uncomplicated vaginal delivery. She did well . Her blood pressures were normal throughout hospital course. she did well. She was discharged to home on day 2 with discharge precautions. OB Procedures : NST and Ultrasound OB Procedures Intrapartum: Spontaneous Vag Delivery OB Procedures: : None Peripartum Data Delivery Method: Natural Vaginal Laceration Description: None complications: none Status at Discharge Functional status at discharge: independent ambulation Overall status at discharge: patient is back to baseline Time Spent with Patient Time attestation: Total time spent providing and/or coordinating discharge services: Exam Const: General: cooperative Orientation/consciousness: oriented to person, oriented to place and oriented to time HENMT: General nose exam: Normal external nose present Eyes: General: appearance normal, both eyes and all related structures Resp: Effort & Inspection: normal respiratory effort GI: Inspection: normal to inspection Skin: General skin exam: normal color Neuro: General: oriented to person, oriented to place and oriented to time Extrem: General: normal to inspection and no calf tenderness Psych: Appearance: grossly normal Mental Status: mental status grossly normal DS: Data Data Completed and Pending Pending studies at discharge: Pending at discharge 02/01/21 19:37 Surgical [PTH] Routine Discharge Plan Discharge Attending physician on discharge: Jorge Luis Martin Discharging Clinician: Jorge Luis Martin Anticipated Discharge Date/Time: 02/03/21 09:58 Patient Disposition: Home, Self-Care Activity: may shower, no straining and pelvic rest Diet: low sodium Discharge Instructions: Contiue previously prescribed Labetolol. Continue daily PNV. Pelvic rest for 4-6 weeks. May take over the counter Ibuprofen or Tylenol for pain. Call if saturating more than a pad an hour, leg redness, pain and swelling, temperature>100.4. No strenuous activity. May discontinue glucose monitoring. Education: Mom and Baby Guide Given to: Mother Follow-Up: Call your delivering provider's office for an appointment to be seen in: 6 Weeks Mom and baby should come to the [facility] for the follow-up appointment. Appointment Date/Time: February 04, 2021 at 11:00 am What to expect at your follow-up visit: Blood Pressure Check Call [phone] if you are unable to keep your appointment time. BREAST CARE: * Wear a snug supportive bra. * For engorgement discomfort: Breast Feeding: * Apply warm moist washcloths * Express milk as needed to relieve engorgement * Wear loose clothing Bottle Feeding: * May apply ice packs * For sore nipples: * Identify correct latch-on * Apply warm moist washcloths before and after nursing * Air dry nipples after nursing * May apply Lansinoh cream to nipples PERINEAL CARE: * Until bleeding stops, use your willard bottle after urinating * Change your pad frequently throughout the day * You may take sitz baths several times a day (fill your bathtub with warm water and soak for 20 minutes.) Do NOT bathe in the water * No tub baths until seen by your physician - You may shower ACTIVITY: * R
--- NOTE | 2021-02-03 10:20 | PC.NURSE ---
Consult with pt., mother has to breast upon entering. Observed mother is able to independently latch with appropriate positioning/alignment. eagerly latches on first attempt with long rhythmical draws and frequent swallowing noted. She denies any nipple discomfort, is feeding as required and waking to feed if needed. has had at least 8 effective feedings in the past 24 hours, and is currently meeting outcomes for weight, output, jaundice and feeding frequencies. Mother states she feels confident to continue effective at home. Reviewed transition to breast milk, signs of adequate intake, and engorgement/relief. Instructed to call ICP if intake/output less than required. Reviewed regular medications mother is taking. Information provided per Fabiana. Reviewed community resources on the [facility] website and in the Mom/Baby guide. Information on outpatient services provided. Mother has no further questions at this time. Instructed feeding should be initiated three hours from start of last feeding or if feeding cues are noted before until seen by ICP. Mother voiced understanding of information shared.
[2021-02-03 11:00] VITALS: PULSE 72
[2021-02-03] MEDS: LABETALOL HCL 50 MG TABLET 150 MG PO (11:00)
--- NOTE | 2021-02-03 11:00 | PC.NURSE ---
PT received discharge instructions per protocol and verbalized understanding.
[2021-02-03] MEDS: IBUPROFEN 600 MG TABLET PO (11:01)
[2021-02-03] MEDS: DOCUSATE SODIUM 100 MG CAPSULE PO (11:01)
[2021-02-03] MEDS: MULTIVIT/MIN/PREN/FOL AC/IRON TABLET 1 TAB PO (11:01)
[2021-02-03] MEDS: ACETAMINOPHEN 325 MG TABLET 650 MG PO (11:02)
--- NOTE | 2021-02-03 11:40 | PC.NURSE ---
PT discharged to home ambulatory accompanied by both spouse and infant and taken to waiting car. Follow up appts confirmed
[2021-02-04 10:38] VITALS: BP 115/70; PULSE 70; RESP 20; TEMP 36.9; O2SAT 98
== END 2021-02-03 11:40 | disposition home or self-care (01) | DRG 560 ==
LOC: ANHLDR 07:11 → ANHOB2 22:03
PROVIDERS: Admitting Provider Obstetrics & Gynecology; PCP Family Medicine; Visit Provider Obstetrics & Gynecology
DX: O10.92 Unspecified pre-existing hypertension complicating childbirth (principal); O24.424 Gestational diabetes mellitus in childbirth, insulin controlled; O99.824 Streptococcus B carrier state complicating childbirth; Z3A.38 38 weeks gestation of pregnancy; Z37.0 Single live birth
CPT/HCPCS: 36415; 80053; 82948; 84550; 85014; 85018; 85025; 86592; 86703; 86850; 86900; 86901; 88307; A9270; G0432; J0131; J0290; J2590; J7120; J7121

== ENCOUNTER 2021-04-11 10:31 | Outpatient (CLI) | payer OTHER, SELFPAY ==
--- NOTE | 2021-04-11 10:36 | ECG_ITS ---
Measurements Intervals [place] Rate: 66 P: 37 [place]: 125 QRS: 6 QRSD: 98 T: 31 QT: 378 QTc: 397 Interpretive Statements SINUS RHYTHM VOLTAGE CRITERIA FOR LVH CONSIDER INFERIOR INFARCT, AGE INDETERMINATE BORDERLINE T WAVE ABNORMALITY- ANTERIOR LEADS ABNORMAL ECG Electronically Signed On 04-11-2021 10:56:48 CONCRETE PIPE MAKING MACHINE OPERATOR by Nasir Taylor D.O.
== END 2021-04-11 10:32 | disposition home or self-care (01) ==
PROVIDERS: PCP Family Medicine; Visit Provider Obstetrics & Gynecology
DX: Z01.818 Encounter for other preprocedural examination (principal); I10 Essential (primary) hypertension; R94.31 Abnormal electrocardiogram [ECG] [EKG]
CPT/HCPCS: 93005

== ENCOUNTER 2021-04-13 00:47 | Day surgery (SDC) | payer OTHER, SELFPAY ==
[2021-04-07 15:05] VITALS: BMI 29.0
--- NOTE | 2021-04-07 15:15 | PC.NURSE ---
Report to the Outpatient Waiting Room, entrance under the green pavilion located off [facility], at time 6:00 on date 04/13/21. OR Time: 7:30. - You will be asked a series of questions to screen for COVID 19 for your protection. - A mask is required within the hospital. - No visitors are allowed at this time. Preoperative COVID Testing Requirements: TO BRING COPY OF COVID CARD No COVID Test needed if: (proof is required; if not received patient will have Rapid Test prior to entry) - Patient has received COVID Vaccine at least 14 days prior to procedure date or - Patient has positive COVID test result within last 90 days of surgery date. COVID Test needed if above criteria is not met Patients may have clear liquids (water, carbonated beverages, clear teas, apple juice) until 3 hours prior to surgery (4:30) with a maximum of 20 ounces. - No food from midnight until time of surgery Take the following medications with a SIP of water the morning of surgery: LABETALOL Medications to discontinue per physician: VITAMINS Date to take last dose: 04/09/21 Please no make-up, nail pashto, hairspray, perfume, deodorant, or body powder the day of surgery. No jewelry (including any body piercings) or valuables the day of surgery, leave them at home. Please take a shower or bath the night before, or the morning of, surgery with an antibacterial soap. Wear comfortable, loose fitting clothing. - Jewelry must be removed prior to entering the operating room. Rings and piercings that are not removed may be cut off. - The hospital will not accept responsibility for valuables. - Please leave all valuables, including medications, at home the day of surgery. If you are going home after surgery, a licensed local delivery truck driver must drive you home. - NO public transportation without another adult. - We recommend that an adult stay with you for 24 hours following discharge. - We also recommend that you do not drive, make important decision, drink alcoholic beverages, or take any drugs that were not prescribed by your health care provider for at least 24 hours after your discharge time. Follow any additional instructions given to you from your surgeon. Telephone instructions given to ZIZY STANLEY and asked if any additional questions and then verbalized understanding. Patient advised to call surgeon office or pre surgery nurse liaison [phone] if any additional questions.
--- NOTE | 2021-04-12 13:55 | PM.IMHP ---
H&P: HPI History of Present Illness Date/Time: 04/12/21 13:55 Patient is here for scheduled laparoscopic sterilization by bilateral salpingectomy. She has satisfied parity and desires permanent sterilization. She declines all other nonpermanent forms of contraception to include vasectomy. She denies any pelvic pain. She has been informed of risks benefits sterilization and risks benefits of the other nonpermanent forms of control and continues to desire the salpingectomy sterilization procedure. Chief Complaint: Desires sterilization Review of Systems Review of Systems: All systems reviewed & are unremarkable except as noted in HPI and below Cardiovascular: Cardiovascular: Reports no additional cardiovascular complaints, Denies chest pain and Denies dyspnea Respiratory: Respiratory: Reports no additional respiratory complaints and Denies dyspnea Gastrointestinal: Gastrointestinal: Reports abdominal pain, Denies change in bowel habits, Denies diarrhea, Denies nausea and Denies vomiting Genitourinary: Genitourinary: Reports pelvic pain Musculoskeletal: Musculoskeletal: Reports back pain Integumentary/Breasts: Skin/Breast: Reports system reviewed and no additional complaints, except as docu Neurologic: Reports system reviewed and no additional complaints, except as documented PMFSH Past Medical History Medical History Essential hypertension History of miscarriage x1 Supervision of other high risk pregnancies, first trimester Vaginal delivery x 3 Surgical History Surgical History Hx of cholecystectomy Hx of tonsillectomy Family History Family History Sibling Diabetes mellitus Hypertension Grandparent Diabetes mellitus Father Hypertension Mother Family history of malignant neoplasm of breast in first degree relative Social History Social History Smoking packs per day: 1 Smoking cigarettes per day: 20.0 Years smoked: 8 Smoking pack-years: 8.00 Smoking status: Former smoker Tobacco type: cigarettes Smoking end date: 03/26/10 Alcohol intake: never Alcohol use details: Not since Substance use: never Substance use type: does not use Gender identity (if verbalized by the patient): Female Spiritual care concerns: No Meds Home Medications and Allergies Home Medications Medication Instructions Recorded Confirmed Type labetalol 100 mg tablet 150 mg PO Q12H tablet 06/30/20 04/07/21 History vitamins no.119-iron 1 tablet PO DAILY 06/30/20 04/07/21 History fumarate 29 mg-folic acid 1 mg tablet Allergies Allergy/AdvReac Type Severity Reaction Status Date / Time latex Allergy Mild RASH Verified 04/07/21 15:04 codeine AdvReac Intermediate Nausea and Verified 04/07/21 15:04 Vomiting Exam Const: Orientation/consciousness: oriented to person and oriented to place HENMT: Head: normal to inspection Eyes: General: appearance normal, both eyes and all related structures Resp: Effort & Inspection: normal respiratory effort Auscultation: clear to auscultation bilaterally Cardio: Rate: regular rate Rhythm: regular rhythm GI: Inspection: normal to inspection GI Palp: No Rebound tenderness present : External Female Exam: normal external appearance Speculum Exam - Vagina: normal appearance of the vagina Speculum Exam - Cervix: normal appearance of the cervix Bimanual exam- vagina & uterus: normal bimanual exam Bimanual Exam- Adnexa, other: no masses Neuro: General: oriented to person and oriented to place Cognition (Neuro): normal cognition Extrem: General: normal to inspection Psych: Appearance: grossly normal and well kempt Assessment and Plan Assessment and plan (1) Admission for sterilization
[2021-04-13] VITALS (9 sets, daily range): BP systolic 110–133; BP diastolic 59–79; PULSE 51–75; RESP 14–17; TEMP 36.1–36.4; O2SAT 98–100
[2021-04-13] MEDS: ACETAMINOPHEN 500 MG TABLET 1000 MG PO (06:58)
[2021-04-13] MEDS: LACTATED RINGERS 1,000 ML 30 ML IV CONT (07:00)
--- NOTE | 2021-04-13 07:03 | P.PNAN_ITS ---
Anes - Initial Pre Proc Eval Procedure: Operation Date: 04/13/21 07:30 Proposed Procedures p Laparoscopic Bilateral Salpingectomy - Jorge Luis Martin MD Date/Time: 04/13/21 07:03 Surgeon: Jorge uLis Martin MD Pre Op Diagnosis: Desires Sterilization Patient Data Age: 40 Gender: F Height: 1.68 m Weight: 81.65 kg Allergies Allergy/AdvReac Type Severity Reaction Status Date / Time latex Allergy Mild RASH Verified 04/13/21 06:20 codeine AdvReac Intermediate Nausea and Verified 04/13/21 06:20 Vomiting Home Medications Medication Instructions Recorded Confirmed Type labetalol 100 mg tablet 150 mg PO Q12H tablet 06/30/20 04/13/21 History vitamins no.119-iron 1 tablet PO DAILY 06/30/20 04/13/21 History fumarate 29 mg-folic acid 1 mg tablet Patient hx anesthesia problems: other (motion sickness) Family hx anesthesia problems: none Results Review: All pre-operative results and documents have been reviewed as part of the pre-operative evaluation. [facility] Past Medical History Medical History Essential hypertension History of miscarriage x1 Supervision of other high risk pregnancies, first trimester Vaginal delivery x 3 Surgical History Surgical History Hx of cholecystectomy Hx of tonsillectomy Family History Family History Sibling Diabetes mellitus Hypertension Grandparent Diabetes mellitus Father Hypertension Mother Family history of malignant neoplasm of breast in first degree relative Social History Social History Smoking packs per day: 1 Smoking cigarettes per day: 20.0 Years smoked: 8 Smoking pack-years: 8.00 Smoking status: Former smoker Tobacco type: cigarettes Smoking end date: 03/26/10 Alcohol intake: never Alcohol use details: Not since Substance use: never Substance use type: does not use Living arrangements: with family Gender identity (if verbalized by the patient): Female Spiritual care concerns: No Anes - Eval Final PreProcedure Day of Procedure 04/13/21 07:03 Patient weight: overweight Heart: regular rate and rhythm Lungs: clear to auscultation Airway: Mallampati scale class II Neurological: alert and oriented Last oral intake: >/= 8 hours ASA classification: II Emergent: no Anesthetic plan: proceed Anesthesia type and monitoring: general ETT and standard monitoring Results Review: All pre-operative results and documents have been reviewed as part of the pre-operative evaluation. Informed Consent: The patient's anesthetic plan and its attendant risks and benefits were discussed with the patient/family/POA. Questions were solicited and answers provided to the satisfaction of the patient/family/POA.
[2021-04-13] MEDS: KETOROLAC 15 MG/ML VIAL (*BKC) IV PUSH (07:05)
--- NOTE | 2021-04-13 07:14 | WPDHPUPDATE1 ---
History and Physical Update Update Date/Time: 04/13/21 07:14 History and Physical has been reviewed, including an updated exam of the patient. There are NO changes in the patient's condition. Risks, benefits, and alternatives have been discussed and questions answered. Patient agrees to proceed with procedure.
[2021-04-13] MEDS: SCOPOLAMINE 1.5 MG PATCH TRANSDERM (07:21)
[2021-04-13] MEDS: BUPIVACAINE HCL 0.5% PF 30 ML VIAL INFILTRATE (08:03)
--- NOTE | 2021-04-13 08:16 | P.OP_ITS ---
Procedure Note - Detailed Date of Procedure 04/13/21 Pre-op Diagnosis Desires Sterilization Post-op Diagnosis same Procedure Performed Laparoscopic bilateral salpingectomy Surgeon Jorge Luis Martin MD Regeneration Operator OR Anesthesia general Indications Undesired fertility. Desires permanent sterilization. Findings Normal appearing uterus, right and left fallopian tubes and ovaries, normal cul de sac. Description of Procedure After informed consent was obtained patient was taken to the operating room and general endotracheal anesthesia was administered. She was placed in low lithotomy need prep prepped sterile fashion. Attention was turned to the vagina speculum inserted single-tooth tenaculum placed on anterior lip of the cervix. [place] uterine manipulator placed into the cervical canal. The speculum was removed. Attention was then turned to the abdomen. With sterile gloves. 0.25% Marcaine injected subcutaneous at umbilicus. A vertical incision was made at the umbilicus and a Veress needle was inserted into the abdomen confirmation into the abdomen obtained with free flow of fluid and normal peritoneal pressures. A pneumoperitoneum of 15 mm per mercury was obtained. A 5 mm port was inserted under laparoscopic visualization. Patient was placed in Trendelenburg position. Attention was turned to the left side of the abdomen and a 5 mm port was inserted under laparoscopic visualization after Marcaine injected subcutaneously. The pelvic organs were visualized. Attention was turned to the right side of the abdomen and another 5 mm port was inserted under laparoscopic visualization after Marcaine injected subcutaneously. Using the LigaSure the right fallopian tube was excised to near the entrance to the uterus. This was removed through the port. Attention was then turned to the left fallopian tube which was grabbed at the distal end and cauterized from the mesial salpinx to within a cm of the entrance to the entrance to the uterus. The fallopian tube was removed through the port. Hemostasis was noted at both sites. Patient was taken out of Trendelenburg position, the ports were removed, the pneumoperitoneum was released and the skin incisions were closed in a subcuticular fashion with 4 O Vicryl and Dermabond. Estimated Blood Loss 5 Drains No Packing No Pathology yes (right and left fallopian tube) Complications No immediate complications Condition stable Disposition PACU
--- NOTE | 2021-04-13 10:16 | SUR.PHASEII ---
1015- spoke with spouse. d/c instructions reviewed with pt.
--- NOTE | 2021-04-13 10:20 | SUR.PHASEII ---
1020- checked with pts surgeon regarding additional prescription for pain.
== END 2021-04-13 10:44 | disposition home or self-care (01) ==
PROVIDERS: PCP Family Medicine; Visit Provider Obstetrics & Gynecology
PROC: (CPT 49320; principal; 2021-04-13 07:30)
DX: Z30.2 Encounter for sterilization (principal); I10 Essential (primary) hypertension; Z87.891 Personal history of nicotine dependence
CPT/HCPCS: 58661; 88302; A9270; J1100; J1170; J1885; J2250; J2704; J3010; J7030; J7120

== ENCOUNTER 2021-07-21 10:10 | Outpatient (CLI) | payer OTHER, SELFPAY ==
--- NOTE | 2021-07-21 | ECG_ITS ---
Measurements Intervals [place] Rate: 58 P: 60 [place]: 120 QRS: 16 QRSD: 92 T: 51 QT: 438 QTc: 433 Interpretive Statements SINUS BRADYCARDIA COMPARED TO ECG 04/11/2021 10:49:46 SINUS BRADYCARDIA NOW PRESENT Electronically Signed On 07-21-2021 20:54:02 CDT by Lillie Park M.D.
== END 2021-07-21 10:11 | disposition home or self-care (01) ==
LOC: ANHLAB 10:12 → ANHCARD 10:15
PROVIDERS: PCP Nurse Practitioner Family; Visit Provider Nurse Practitioner Family
DX: R94.31 Abnormal electrocardiogram [ECG] [EKG] (principal)
CPT/HCPCS: 93005

== ENCOUNTER 2022-05-24 15:18 | Outpatient (CLI) | payer OTHER, SELFPAY ==
--- NOTE | ~2022-05-24 | MM_ITS ---
EXAMINATION: MM screening vickey BI w jaime HISTORY: Screening mammogram TECHNIQUE: Craniocaudal and mediolateral oblique 3-D tomosynthesis images were obtained and synthetic 2-D images were generated. CAD analysis was submitted and interpreted. COMPARISON: 01/28/2019 bilateral diagnostic mammogram 01/14/2019 bilateral screening mammogram BREAST PARENCHYMAL COMPOSITION: The breasts are heterogeneously dense, which may obscure small masses . FINDINGS: There is generalized increased prominence of the fibroglandular stroma since 01/14/2019. There is an approximately 1.9 cm circumscribed mass density in the lower right breast approximately 6 :00 position 3 3.5 cm deep to the nipple. The heterogeneously dense stroma may obscure additional masses. Bilateral complete breast ultrasound examination is recommended. IMPRESSION: 1. Approximately 1.9 cm circumscribed mass at 6:00 position of right breast 2. Heterogeneously dense stroma bilaterally may obscure additional masses. BI-RADS Category 0: Incomplete; need additional imaging evaluation Recommendation: Bilateral complete breast ultrasound examination Reviewed, dictated and finalized at location A. ITAL RECRUITER
== END 2022-05-24 15:19 | disposition home or self-care (01) ==
LOC: ANHIMG 15:20
PROVIDERS: PCP Nurse Practitioner Family; Visit Provider Obstetrics & Gynecology
DX: Z12.31 Encounter for screening mammogram for malignant neoplasm of breast (principal); R92.8 Other abnormal and inconclusive findings on diagnostic imaging of breast
CPT/HCPCS: 77063; 77067

== ENCOUNTER 2022-06-09 13:08 | Outpatient (CLI) | payer OTHER, SELFPAY ==
--- NOTE | ~2022-06-09 | US_ITS ---
US breast BI complete DATE: 06/09/2022 14:21 INDICATION: Approximately 1.9 cm circumscribed mass at 6:00 right breast. Heterogeneously dense alexis a bilaterally, which may obscure additional masses. TECHNIQUE: Real-time imaging of bilateral complete breast in caudal 4 quadrants and subareolar area o f each breast. COMPARISON: 05/25/2019 bilateral screening mammogram FINDINGS: No suspicious mass or shadowing of either breast is detected. Right breast: 6:00 near nipple: Septated approximately 8 x 9.5 mm simple cyst, which corresponds to the mammographi c finding in the lower mid right breast. Left breast: Complicated dilated cystic area of left breast at 3:00 6 cm from nipple, measuring up to approximately 2.8 x 1 x 1.1 cm, with through transmission posterior enhancement. This may be dilated duct, galactocele(s) further complicated cystic structure. IMPRESSION: BI-RADS Category 3: Probably benign Recommendation: 6 month targeted left breast ultrasound follow-up, which will be after the patient joseph s ended breast-feeding Reviewed, dictated and finalized at Location A. Reviewed, dictated and finalized at location A. IMPRESSION: BI-RADS Category 3: Probably benign Recommendation: 6 month targeted left breast ultrasound follow-up, which will b e after the patient has ended breast-feeding
== END 2022-06-09 13:09 | disposition home or self-care (01) ==
LOC: ANHIMG 13:09
PROVIDERS: PCP Nurse Practitioner Family; Visit Provider Obstetrics & Gynecology
DX: R92.8 Other abnormal and inconclusive findings on diagnostic imaging of breast (principal)
CPT/HCPCS: 76641

== ENCOUNTER 2023-01-31 12:36 | Outpatient (CLI) | payer OTHER, MEDICAID, SELFPAY ==
--- NOTE | ~2023-01-31 | MMUS_ITS ---
EXAMINATION: MM diagnostic vickey LT w jaime, US breast LT limited HISTORY: Follow-up left breast mass TECHNIQUE: Additional 3-D tomosynthesis images of the left breast were performed and synthetic 2-D im ages were generated. CAD analysis was submitted and interpreted. High resolution Limited left breast ultrasound was performed. COMPARISON: Comparison to multiple prior studies sequentially, with oldest reviewed study dated 12/25. BREAST PARENCHYMAL COMPOSITION: Breast composed of scattered areas of fibroglandular density FINDINGS: MAMMOGRAPHIC FINDINGS: focal asymmetry in the upper aspect of the left breast is unchanged from prior examinations. No new m asses, calcifications or architectural distortion. ULTRASOUND: Limited left breast ultrasound: At 3:00, 6 cm from the nipple, there is an irregular shaped hypoechoi c mass measuring 2.5 x 1.2 x 0.7 cm. No internal vascularity. No significant posterior features. IMPRESSION: 1. Irregular shaped hypoechoic left breast mass at 3:00, 6 cm from the nipple. 2. Ultrasound-guided left breast biopsy recommended. BI-RADS category 4, suspicious findings. Reviewed, dictated and finalized at location A. CAR LOADER IMPRESSION: 1. Irregular shaped hypoechoic left breast mass at 3:00, 6 cm from the nipple. 2. Ultrasound-guided left breast biopsy recommended. BI-RADS category 4, suspicious findings.
== END 2023-01-31 12:37 | disposition home or self-care (01) ==
LOC: ANHIMG 12:38
PROVIDERS: PCP Nurse Practitioner Family; Visit Provider Obstetrics & Gynecology
DX: R92.8 Other abnormal and inconclusive findings on diagnostic imaging of breast (principal)
CPT/HCPCS: 76642; 77061; 77065; G0279

== ENCOUNTER 2023-02-14 09:58 | Outpatient (CLI) | payer OTHER, SELFPAY ==
--- NOTE | ~2023-02-14 | US_ITS ---
US breast LT limited DATE: 02/14/2023 11:13 INDICATION: The patient presented for biopsy of 3:00 sonographic left breast lesion 6 cm from nipple TECHNIQUE: Real-time and color flow imaging targeted to the 3:00 6 cm from nipple COMPARISON: 02/12/2023, 05/24/2022 left mammogram and ultrasound images were reviewed 01/28/2019 diagnostic bilateral mammogram 01/14/2019 bilateral screening mammogram FINDINGS: No suspicious mass lesion is detected upon repeat scanning by senior medical technologist and m yself. The area of interest blends imperceptibly without margins into normal appearing fibroglandula r tissue. No suspicious shadowing or vascular shadowing is detected. IMPRESSION: No definite significant abnormality; 6 month follow up diagnostic mammogram and ultrasoun d follow up is recommended to document expected stability BIRADS Category 3: Benign Reviewed, dictated and finalized at Location A. Reviewed, dictated and finalized at location A. SECURITY CONSULTANT IMPRESSION: No definite significant abnormality; 6 month follow up diagnostic m ammogram and ultrasound follow up is recommended to document expected stability BIRADS Category 3: Benign
== END 2023-02-14 09:59 | disposition home or self-care (01) ==
LOC: ANHIMG 10:00
PROVIDERS: PCP Nurse Practitioner Family; Visit Provider Surgery
DX: N63.25 Unspecified lump in the left breast, overlapping quadrants (principal)
CPT/HCPCS: 76642

== ENCOUNTER 2024-02-18 12:13 | Outpatient (CLI) | payer OTHER, SELFPAY ==
--- NOTE | ~2024-02-18 | MM_ITS ---
EXAMINATION: MM diagnostic vickey BI w jaime HISTORY: Follow-up left breast asymmetry TECHNIQUE: Additional 3-D tomosynthesis images of the breasts were performed and synthetic 2-D images were generated. CAD analysis was submitted and interpreted. COMPARISON: Comparison to multiple prior studies sequentially, with oldest reviewed study dated 12/25. BREAST PARENCHYMAL COMPOSITION: Not dense: There are scattered areas of fibroglandular density. FINDINGS: Stable low-density mass lower central aspect of the right breast anteriorly, previously avila racterized as a cyst. There are no suspicious masses, calcifications or architectural distortion in e ither breast to suggest malignancy. IMPRESSION: 1. No mammographic evidence for malignancy in either breast. 2. . Routine yearly screening mammogram and regular clinical breast examination are recommended. BI-RADS Category 2: Benign finding(s). Reviewed, dictated and finalized at location B. SCOUT
== END 2024-02-18 12:14 | disposition home or self-care (01) ==
LOC: ANHIMG 12:13
PROVIDERS: PCP Family Medicine; Visit Provider Surgery
DX: R92.8 Other abnormal and inconclusive findings on diagnostic imaging of breast (principal)
CPT/HCPCS: 77062; 77066; G0279

== ENCOUNTER 2024-03-12 09:58 | Day surgery (SDC) | payer OTHER, SELFPAY ==
[2024-01-23 13:31] VITALS: BMI 36.8
--- NOTE | 2024-03-12 06:59 | WPDANESEPPF ---
Anes - Initial Pre Proc Eval Procedure: Operation Date: 03/12/24 12:30 Proposed Procedures p Screening Colonoscopy - Hadley Hatch MD Date/Time: 03/12/24 06:59 Surgeon: Hadley Hatch MD Pre Op Diagnosis: Screening Neoplasm of Colon Patient Data Age: 43 Gender: F Height: 1.65 m Weight: 100 kg Allergies Allergy/AdvReac Type Severity Reaction Status Date / Time latex Allergy Mild RASH Verified 03/12/24 11:19 codeine AdvReac Intermediate Nausea and Verified 03/12/24 11:19 Vomiting Home Medications ?Medication ?Instructions ?Recorded ?Confirmed ?Type ranitidine HCl 150 mg tablet 150 mg PO BID 02/07/23 03/12/24 History labetalol 100 mg tablet 150 mg PO DAILY 10/16/23 03/12/24 History calcium 600 mg (as carbonate)-vit 1 tablet PO DAILY 02/20/24 03/12/24 History D3 20 mcg (800 unit) chewable tablet (Caltrate plus D) vibegron 75 mg tablet (Gemtesa) 75 mg PO DAILY 02/20/24 03/12/24 History Patient hx anesthesia problems: none Family hx anesthesia problems: none Results Review: All pre-operative results and documents have been reviewed as part of the pre-operative evaluation. [facility] Past Medical History Medical History Essential hypertension History of miscarriage X1 Vaginal delivery x 3 Surgical History Surgical History H/O bilateral salpingectomy Hx of cholecystectomy Hx of tonsillectomy Family History Family History Sibling Diabetes mellitus Hypertension Grandparent Diabetes mellitus Father Hypertension Mother Family history of malignant neoplasm of breast in first degree relative Social History Social History Smoking packs per day: 1 Smoking cigarettes per day: 20.0 Years smoked: 8 Smoking pack-years: 8.00 Smoking status: Former smoker Tobacco type: cigarettes Smoking end date: 03/26/10 Alcohol intake: never Alcohol use details: Not since Substance use: never Substance use type: does not use Lack of Transportation: No Lack of Food: Never True Current Housing: I Have Housing Concerned About Future Housing: No Difficulty Paying Gas/Electric Bills: No Difficulty Paying for Meds: No Currently Unemployed: No Education: Trade/Vocational Certificate Living arrangements: with family Gender identity (if verbalized by the patient): Female Sexual Orientation (if Verbalized by the Patient): Straight or Heterosexual Spiritual care concerns: No Anes - Eval Final PreProcedure Day of Procedure 03/12/24 06:59 Patient weight: obese Heart: regular rate and rhythm Lungs: clear to auscultation Airway: Mallampati scale class II Neurological: alert and oriented Last oral intake: >/= 8 hours ASA classification: III Emergent: no Anesthetic plan: proceed Anesthesia type and monitoring: general GIVS and standard monitoring Results Review: All pre-operative results and documents have been reviewed as part of the pre-operative evaluation. Informed Consent: The patient's anesthetic plan and its attendant risks and benefits were discussed with the patient/family/POA. Questions were solicited and answers provided to the satisfaction of the patient/family/POA.
[2024-03-12 11:21] VITALS: BP 122/90; PULSE 73; RESP 16; TEMP 36.7; O2SAT 97
[2024-03-12] MEDS: LACTATED RINGERS 1,000 ML 150 ML IV CONT (11:24)
--- NOTE | 2024-03-12 11:29 | P.HP_ITS ---
History of Present Illness History of Present Illness Consent: Risks, benefits, and alternatives have been discussed and questions answered. Patient agrees to proceed with procedure. Chief complaint: Screening Neoplasm of Colon Narrative: Marta Solitario is a 43 year old female presents for screening colonoscopy. Patient's current weight appetite and bowel movements are normal. She denies abdominal pain. Patient has had no bleeding. Family history is non contributory. Review of Systems Review of Systems: All systems reviewed & are unremarkable except as noted in HPI and below PMFSH Past Medical History Medical History Essential hypertension History of miscarriage X1 Vaginal delivery x 3 Surgical History Surgical History H/O bilateral salpingectomy Hx of cholecystectomy Hx of tonsillectomy Family History Family History Sibling Diabetes mellitus Hypertension Grandparent Diabetes mellitus Father Hypertension Mother Family history of malignant neoplasm of breast in first degree relative Social History Social History Smoking packs per day: 1 Smoking cigarettes per day: 20.0 Years smoked: 8 Smoking pack-years: 8.00 Smoking status: Former smoker Tobacco type: cigarettes Smoking end date: 03/26/10 Alcohol intake: never Alcohol use details: Not since Substance use: never Substance use type: does not use Lack of Transportation: No Lack of Food: Never True Current Housing: I Have Housing Concerned About Future Housing: No Difficulty Paying Gas/Electric Bills: No Difficulty Paying for Meds: No Currently Unemployed: No Education: Trade/Vocational Certificate Living arrangements: with family Gender identity (if verbalized by the patient): Female Sexual Orientation (if Verbalized by the Patient): Straight or Heterosexual Spiritual care concerns: No Meds Home Medications and Allergies Home Medications ?Medication ?Instructions ?Recorded ?Confirmed ?Type ranitidine HCl 150 mg tablet 150 mg PO BID 02/07/23 03/12/24 History labetalol 100 mg tablet 150 mg PO DAILY 10/16/23 03/12/24 History calcium 600 mg (as carbonate)-vit 1 tablet PO DAILY 02/20/24 03/12/24 History D3 20 mcg (800 unit) chewable tablet (Caltrate plus D) vibegron 75 mg tablet (Gemtesa) 75 mg PO DAILY 02/20/24 03/12/24 History Allergies Allergy/AdvReac Type Severity Reaction Status Date / Time latex Allergy Mild RASH Verified 03/12/24 11:19 codeine AdvReac Intermediate Nausea and Verified 03/12/24 11:19 Vomiting Vital Signs Vital Signs - 24 hr 03/12/24 11:21 Temperature 98.1 F Pulse Rate 73 Respiratory Rate 16 Blood Pressure 122/90 Pulse Oximetry 97 Oxygen Delivery Room Air Exam Narrative: Physical exam reveals patient to be alert. Vital signs stable. HEENT exam is unremarkable. Patient is anicteric. Lungs are clear to auscultation and to percussion. Heart is without murmur or extra sounds. Abdomen bowel sounds are present soft nontender with no organomegaly. Digital external rectal exam normal. Assessment and Plan Assessment and plan (1) Colon cancer screening: Code(s): Z12.11 - Encounter for screening for malignant neoplasm of colon Status: Acute Assessment and Plan: Presents today for screening colonoscopy. Further recommendations may be given after endoscopy.
[2024-03-12 13:05] VITALS: BP 104/68; PULSE 72; RESP 20; O2SAT 99
--- NOTE | 2024-03-12 13:08 | WPDANESPN ---
Anes - Prog Note Post-Op Date/Time: 03/12/24 13:08 Cardiovascular status: normal Respiratory status: normal Airway patency: baseline Mental status: baseline Post-Op hydration status: normal Vital Signs: Last Vital Signs Temp 36.7 C 03/12/24 11:21 Pulse 73 03/12/24 11:21 Resp 16 03/12/24 11:21 BP 122/90 03/12/24 11:21 Pulse Ox 97 03/12/24 11:21 O2 Del Method Room Air 03/12/24 11:21 Pain Score (VAS): 0 I/O: Intake & Output 03/11/24 03/12/24 03/12/24 23:59 07:59 15:59 Intake Total 200 Balance 200 Post-procedural complaints: none Patient Feedback: Patient satisfied with anesthetic care. Other Findings: Patient vital signs back to baseline. Patient denies nausea and vomiting. Patient's pain under control. Patient OK for discharge.
[2024-03-12 13:15] VITALS: BP 114/75; PULSE 87; RESP 18; O2SAT 100
[2024-03-12 13:25] VITALS: BP 124/88; PULSE 75; RESP 14; O2SAT 100
== END 2024-03-12 09:59 | disposition home or self-care (01) ==
PROVIDERS: PCP Family Medicine; Visit Provider Internal Medicine Gastroenterology
PROC: 0DJD8ZZ Inspection of Lower Intestinal Tract, Via Natural or Artificial Opening Endoscopic (ICD-10-PCS; CPT 45378; principal; 2024-03-12 12:30)
DX: Z12.11 Encounter for screening for malignant neoplasm of colon (principal); K57.30 Diverticulosis of large intestine without perforation or abscess without bleeding; K64.8 Other hemorrhoids
CPT/HCPCS: 45378